=== PATIENT | female | born 1950 | race Caucasian/White ===

== ENCOUNTER 2017-02-21 11:13 | Day surgery (SDC) | payer MEDICARE, BC ==
--- NOTE | 2017-02-20 19:00 | Pre-op HX & Phy Repo 2 SIG ---
DATE OF ADMISSION: 02/21/[address] Ghassan Guevara dictating preop history and physical for Nela Townsend M.D. REASON FOR EVALUATION: The patient is to have an orthopedic procedure tomorrow, 02/21/2017. AGE: 66 SEX: Female. RACE: White. BIRTHPLACE: [place]. MARITAL STATUS: . 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 DRUG AND DYE SENSITIVITIES: None. RECENT CONTACT WITH CONTAGIOUS DISEASE: None. ISOTOPES: None. STEROIDS: None. ANTICOAGULANTS: None. PRESENT COMPLAINT: Right shoulder adhesive capsulitis. ONSET AND COURSE: The patient has had right shoulder pain that developed spontaneously 4 months previously without injury. She was diagnosed with an adhesive capsulitis by Dr. Nela Townsend. The course of physical therapy helped but did not resolve the problem. She is now scheduled for right shoulder manipulation with Dr. Nela Townsend under anesthesia. Please see Dr. Townsend's notes for further details. FAMILY HISTORY: Mother at age 78 with CVA. She also had history of hypertension. Father at age 84 with dementia and history of hypertension. Siblings, one brother at 74 with obesity, mental difficulties, heart problems, and diabetes. MARITAL HISTORY: She is for 42 years, has two sons aged 37 and 35, both living and well. FAMILIAL DIATHESIS: There is family history of breast cancer. CHILDHOOD DISEASES: She had chickenpox at the age of 39. ADULT DISEASES: See by systems. There is history of basal cell cancer. OPERATIONS: She is status post tonsillectomy and adenoidectomy, right knee meniscus surgery, bilateral breast reduction surgery, bilateral eye plastic surgery, right breast benign lumpectomy, and right foot bunion surgery. ACCIDENTS AND INJURIES: None serious. in college only. CURRENT DRUGS: Levothyroxine 0.05 mg daily and Estrace. ALCOHOLIC BEVERAGES: Social. PERTINENT TRAVEL: She was in [place] in March 2016, and had no illnesses later. BY SYSTEMS: HEAD AND NECK: No significant problems of the head or neck. EYES, EARS, NOSE, THROAT: No visual difficulties. Extraocular movements intact. Pupils are equal and round. Fundi not visualized. No hearing difficulties. She wears contacts. RESPIRATORY: No dyspnea or cough. CARDIOVASCULAR: No chest pain, palpitations, or syncope. HEMIC/LYMPHATIC: Mild hyperchromic macrocytic anemia, etiology under investigation. GASTROINTESTINAL: There is past history of colon polyps, but the most recent colonoscopy showed no polyps. She has no current melena. No bright red blood per rectum and her weight is steady. No abdominal pain. GENITOURINARY: No incontinence. Nocturia x1. No dysuria. GYNECOLOGIC AND OBSTETRICAL: No vaginal bleeding. MUSCULOSKELETAL: See present illness. She also has low back spondylolisthesis. ENDOCRINE: She has hypothyroidism. No diabetes. NEUROLOGICAL: No stroke, syncope, or seizures. PSYCHOLOGICAL: Stable. PHYSICAL EXAMINATION: VITAL SIGNS: Pulse 62, respirations 16, blood pressure 120/78. Height 61 inches. Weight 108. GENERAL APPEARANCE: Well-developed, well-nourished woman. HEAD: No tenderness. EYES: No visual difficulties. EARS: No gross hearing deficit. NECK: Thyroid not enlarged. Trachea midline. CHEST: No chest wall tenderness. LUNGS: Clear to auscultation. BREASTS: Exam deferred to her law clerk. HEART: PMI in the fifth intercostal space, midclavicular line. No murmurs, gallops, or rubs. ABDOMEN: No tenderness, masses, or organomegaly. EXTERNAL GENITALIA: Deferred to her law clerk. VAGINAL: Deferred to her law clerk. PELVIC: Deferred to her law clerk. RECTAL: Deferred to her law clerk. BACK AND EXTREMITIES: No back or costovertebral angle tenderness. Right shoulder exam per Dr. Townsend. NEUROLOGICAL: Her mental status, cranial nerves II through XII, motor, and coordination are intact. SKIN AND LYMPHATICS: No dermatitis or lymphadenopathy. PSYCHOLOGICAL: Interacts. IMPRESSION: 1. Right shoulder adhesive capsulitis for manipulation under anesthesia with Dr. Nela Townsend. 2. Hyperchromic macrocytic anemia, etiology under investigation. 3. Hypothyroidism. 4. Low back spondylolisthesis. 5. Past history of colon polyps. 6. History of the following surgeries. Tonsillectomy and adenoidectomy, right knee meniscus surgery, bilateral breast reductions, bilateral eye plastic surgery, right breast benign lumpectomy, and right foot bunion surgery. Nela Townsend M.D. DR: Hector JOB#: [id number] CC: Ghassan Guevara M.D.; Ph#: [phone]; Fax#: [phone] NELA TOWNSEND M.D. ; FAX#: [phone]
[2017-02-21] VITALS (10 sets, daily range): BP systolic 104–135; BP diastolic 69–83
[~2017-02-21] VITALS: Ht 154.9 cm; Wt 49.0 kg
--- NOTE | 2017-02-21 06:57 | Pre-Procedure Note/Attestation ---
Pre-Procedure Note/Attestation Complete Prior to Procedure Planned Procedure: right Procedure Narrative: rt shoulder massimo with injection Indications for Procedure Pre-Operative Diagnosis: rt frozen shoulder Attestation I attest that I discussed the nature of the procedure; its benefits; risks and complications; and alternatives (and the risks and benefits of such alternatives ), prior to the procedure, with the patient (or the patient's legal employee's representative). I attest that, if there was a reasonable possibility of needing a blood transfusion, the patient (or the patient's legal employee's representative) was given the [facility] standardized written summary, pursuant to the Ghassan [place] Blood Safety Act ([place] Health and Safety Code # 1645, as amended). I attest that I re-evaluated the patient just prior to the surgery and that there has been no change in the patient's H&P, except as documented below: none NELA TOWNSEND Feb 21, 2017 06:57
[~2017-02-21 11:13] MED LIST: ceFAZolin 1gm in D5W 55ml IVP ONE; celeBREX 200mg Cap **SURGERY PATIENTS ONLY ORAL ONE; oxyCONTIN 20mg tab ORAL ONE
[2017-02-21] MEDS ORDERED: VITAMIN D400 INTLU ORAL (12:14)
[2017-02-21] MEDS ORDERED: CALCIUM600 M1 PO (12:14)
[2017-02-21] MEDS ORDERED: LEVOTHYROXINE50 MCG ORAL (12:14)
[2017-02-21] MEDS ORDERED: ASPIRIN81 MG ORAL (12:14)
[2017-02-21] MEDS ORDERED: OMEGA 3 1,0001 EACH PO (12:14)
[2017-02-21] MEDS ORDERED: COLACE100 MG ORAL (12:14)
[2017-02-21] MEDS ORDERED: VITAMIN C500 M1 ORAL (12:14)
[2017-02-21] MEDS ORDERED: TURMERIC500 MG PO (12:14)
[2017-02-21] MEDS ORDERED: Norco 5mg/325mg tab ORAL PRN (12:15)
[2017-02-21] MEDS ORDERED: Tylenol #3 tab (300mg/30mg) ORAL PRN (12:15)
[2017-02-21] MEDS ORDERED: Hydromorphone 0.5mg/0.5ml inj SUBQ PRN (12:15)
[2017-02-21] MEDS ORDERED: D5 1/2NS 1,000 ML IV SCH (12:15)
[2017-02-21] MEDS ORDERED: Ropivacaine 5mg/ml Vial 30ml INJ ONE ×2 (12:29→12:41)
[2017-02-21] MEDS ORDERED: celeBREX 200mg Cap **SURGERY PATIENTS ONLY ORAL ONE (12:30)
[2017-02-21] MEDS ORDERED: Lidocaine 1% 10mg/ml/Epi 0.005mg/ml 30ml vial INJ ONE (12:39)
[2017-02-21] MEDS ORDERED: Propofol 200mg/20ml IV ONE (12:39)
[2017-02-21] MEDS ORDERED: Kenalog-40 1ml Vial ONE (12:39)
[2017-02-21] MEDS ORDERED: Isovue-M 300 15ml INJ ONE (12:43)
[2017-02-21] MEDS ORDERED: LR 1000ml 1,000 ML IVLG SCH (14:08)
--- NOTE | 2017-02-21 14:08 | Anethesia Preoperative Eval ---
Anesthesia Pre-op PMH/ROS General Date of Evaluation: Feb 21, 2017 Time of Evaluation: 12:50 Anesthesiologist: Ricky ASA Score: ASA 2 Mallampati Score Class I : Soft palate, uvula, fauces, pillars visible Class II: Soft palate, uvula, fauces visible Class III: Soft palate, base of uvula visible Class IV: Only hard plate visible Mallampati Classification: Class II Surgeon: Manuel Diagnosis: R shoulder pain Surgical Procedure: R shoulder manipulation Anesthesia History: none Family History: no anesthesia problems Allergies: Coded Allergies: No Known Allergies (Verified Allergy, Mild, 04/16/07) Past Medical History Cardiovascular: Denies: HTN, CAD, [place], valve dz, arrhythmia, other Pulmonary: Denies: asthma, COPD, JOSE R, other Gastrointestinal/Genitourinary: Reports: GERD - mild, Denies: CRI, ESRD, other Neurologic/Psychiatric: Denies: dementia, CVA, depression/anxiety, TIA, other Endocrine: Reports: hypothyroidism HEENT: Denies: cataract (L), cataract (R), glaucoma, [place] (L), [place] (R), other Hematology/Immune: Reports: anemia, Denies: DVT, bleeding disorder, other Musculoskeletal/Integumentary: Denies: OA, RA, DJD, DDD, edema, other PMH Narrative: as above PSxH Narrative: bunionectomy Anesthesia Pre-op Phys. Exam Physician Exam Last Vital Signs Date Time Temp Pulse Resp B/P (MAP) Pulse Ox O2 Delivery O2 Flow Rate FiO2 02/21/17 13:55 65 15 135/78 100 Room Air 02/21/17 13:49 6.0 02/21/17 13:39 97.9 Constitutional: NAD Neurologic: CN 2-12 intact Cardiovascular: RRR, no M/R/G Respiratory: CTA Gastrointestinal: S/NT/ND Airway Exam Mallampati Score: Class II MO: full Neck: flexible ROM: limited Teeth: intact Dentures: no upper, no lower Anesthesia Pre-op A/P Labs see chart Studies Pre-op Studies: EKG - NSR Risk Assessment & Plan Assessment: ASA 2 Plan: MAC with R brachial plexus block Status Change Before Surgery: No Pre-Antibiotics Drug: none SE SCHUSTER M.D. Feb 21, 2017 14:08
--- NOTE | 2017-02-21 14:13 | Immediate Post-Op Evaluation ---
Immediate Post-Op Evalulation Immediate Post-Op Evalulation Procedure: R shoulder manipulation with injection Date of Evaluation: Feb 21, 2017 Time of Evaluation: 13:45 IV Fluids: 800 Blood Products: none Estimated Blood Loss: none Urinary Output: none Blood Pressure Systolic: 116 Blood Pressure Diastolic: 57 Pulse Rate: 72 Respiratory Rate: 20 O2 Sat by Pulse Oximetry: 99 Temperature (Fahrenheit): 98.1 Pain Score (1-10): 2 Nausea: No Vomiting: No Complications none Patient Status: reacts, patent, none Hydration Status: adequate SE SCHUSTER M.D. Feb 21, 2017 14:13
[2017-02-21] MEDS ORDERED: Ketorolac 30mg Inj IV PRN (14:15)
[2017-02-21] MEDS ORDERED: DiphenhydrAMINE 50mg/ml Inj IVP PRN (14:15)
[2017-02-21] MEDS ORDERED: Hydromorphone 0.5mg/0.5ml inj IVP PRN (14:15)
--- NOTE | 2017-02-21 14:26 | 48 Hour Post Anesthesia Eval ---
Post Anesthesia Evaluation Procedure: R shoulder manipulation with injection Date of Evaluation: Feb 21, 2017 Time of Evaluation: 14:25 Blood Pressure Systolic: 124 0: 72 Pulse Rate: 68 Respiratory Rate: 20 Temperature (Fahrenheit): 97.4 O2 Sat by Pulse Oximetry: 98 Airway: patent Nausea: No Vomiting: No Pain Intensity: 2 Hydration Status: adequate Cardiopulmonary Status: stable Mental Status/LOC: patient returned to baseline Follow-up Care/Observations: n/a Post-Anesthesia Complications: none Follow-up care needed: ready to discharge SE SCHUSTER M.D. Feb 21, 2017 14:26
--- NOTE | 2017-02-21 14:56 | Brief Operative Note ---
Immediate Post Operative Note Operative Note Chief Complaint: rt shoulder stiffness Pre-op Diagnosis: Rt frozen shoulder Procedure: rt shoulder massimo with injection Post-op Diagnosis: same as pre-op Findings: consistent w/pre-op dx studies Surgeon: [email or web address]. ferrell Anesthesiologist: md jacob Anesthesia: local, MAC Specimen: none Complications: none Condition: stable Fluids: ns Estimated Blood Loss: none Drains: none Implant(s) used?: No SD WHITE Feb 21, 2017 14:56
[2017-02-21] MEDS ORDERED: LR 1000ml ONE (15:00)
[2017-02-21] MEDS ORDERED: Midazolam 2mg/2ml Inj ONE (15:00)
[2017-02-21] MEDS ORDERED: fentaNYL 100 mcg/2 mL IV ONE (15:00)
--- NOTE | 2017-02-21 21:32 | Operative Note - Dictated ---
DATE OF OPERATION: 02/21/2017 PREOPERATIVE DIAGNOSIS: Right shoulder adhesive capsulitis, severe. POSTOPERATIVE DIAGNOSIS: Right shoulder adhesive capsulitis, severe. PROCEDURES: 1. Right shoulder manipulation under anesthesia. 2. Right shoulder arthrogram. 3. Right shoulder injection of 4 mL of ropivacaine, 4 mL of lidocaine, and 2 mL of Depo-Medrol intra-articularly using fluoroscopy. SURGEON: Shelton Jackson M.D. LIBRARIAN SPECIAL LIBRARY: None. ANESTHESIOLOGIST: Josiah García M.D. ANESTHESIA: General mask anesthesia. EBL: None. COMPLICATIONS: None. BRIEF HISTORY: The patient is a pleasant 66-year-old female, who has had severe adhesive capsulitis, which has been not getting better. After full discussion of risks and benefits of the surgery and complications associated with it including infection, bleeding, neurovascular complication, possibility of continued pain, continued loss of motion, and other complications may arise, she opted for surgical treatment as described above. OPERATIVE PROCEDURE: The patient was brought to the operating room table and was placed supine. All pressure points were well padded. A general mask anesthesia was induced. The right shoulder was then gently manipulated into full flexion, abduction, external rotation, internal rotation, and adduction. This allowed to complete release of the capsule circumferentially. Multiple gentle crackling could be heard as the capsule was released. At this point, the range of motion was excellent. At this point, the anterior aspect of the shoulder was prepped and draped in usual sterile fashion. An image intensifier was brought in. Using spinal needle, intraarticular access to the shoulder was obtained and the shoulder was injected with Isovue. Arthrogram was performed, there was no rotator cuff tear. However anteriorly, there was anterior and inferior capsule tearing consistent with manipulation. At this point, the mixture of ropivacaine and Kenalog was then injected as described above. At this point, the spine needle was removed and a Band-Aid was applied. Final images were obtained and the humeral head and the glenoid were intact and there were no fractures. The patient tolerated the procedure well without any complication and was taken to recovery room in stable condition. Shelton Jackson M.D. DR: RIKY JOB#: [id number] CC:
--- NOTE | 2017-02-22 11:55 | Diagnostic Imaging Report ---
Indication: PAIN, intraoperative Technique: Intraoperative images Comparison: None Findings: Intraoperative images demonstrate injection of contrast into the shoulder joint. Impression: Intraoperative images, as described
== END 2017-02-21 14:55 | disposition home or self-care (01) ==
LOC: SUR 11:13
DX: M75.01 Adhesive capsulitis of right shoulder (principal); D53.9 Nutritional anemia, unspecified; E03.9 Hypothyroidism, unspecified; M43.16 Spondylolisthesis, lumbar region; K21.9 Gastro-esophageal reflux disease without esophagitis; Z86.010 Personal history of colon polyps; Z80.3 Family history of malignant neoplasm of breast; Z81.8 Family history of other mental and behavioral disorders; Z83.3 Family history of diabetes mellitus; Z82.49 Family history of ischemic heart disease and other diseases of the circulatory system; Z82.3 Family history of stroke
CPT/HCPCS: 23350; 23700; 73020; 76000; J2250; J2795; J3010; J3301; J7120; Q9967; 94003; 94150